=== PATIENT | female | born 1970 | race Caucasian/White ===

== ENCOUNTER 2016-12-25 08:21 | Emergency (ER) | payer SELFPAY ==
[2016-12-25] MEDS ORDERED: LORazepam 1 MG TABLET PO ONE (08:47)
[2016-12-25] MEDS ORDERED: LORazepam 1 MG TABLET ONE (08:49)
--- NOTE | 2016-12-25 08:53 | ERNOTE ---
Chest Pain/Cardiac HPI Date of Service: 12/25/16 Chief Complaint: Tachycardia Time Seen by Provider: 12/25/16 08:36 Source: patient, family Exam Limitations: no limitations Immunizations: IMMUNIZATION HX Immunizations Up to Date Yes History of Influenza Vaccine No Hx Pneumococcal Vaccination No Allergies/Adverse Reactions: Allergies Penicillins Allergy (Verified 10/16/13 16:38) Home Medications: HOME MEDICATIONS LORazepam [Ativan] 0.5 mg PO TID PRN #90 tab 12/25/16 [Last Taken Unknown] Nitrofurantoin Macrocrystal [Macrodantin] 50 mg PO QID #28 cap 12/25/16 [Last Taken Unknown] Sertraline HCl [Zoloft] 25 mg PO DAILY #30 tablet 12/25/16 [Last Taken Unknown] Narrative: Panic attacks with palpitations and tachycardia started about a year after her older sister 6 years ago. She improved on zoloft and as needed ativan. 2 years ago, she weaned herself off these meds, because she doesn't like taking medication. A year ago, the panic attacks resumed, and have worsened. She resisted restarting medication, because she doesn't like taking medication. Symptoms are now distressing enough, she is willing to resume medication. Since these episodes first began, she has also had fitful sleep and nightmares perhaps twice weekly, but no flashbacks. She wonders if low potassium might be causing the problem. Timing: getting worse Severity/Quality: moderate Location: other - no pain Chest Pain Radiation: no radiation - no pain Activities at Onset: none Modifying Factors - Improves: Present: other - meds in past Modifying Factors - Worsens: Present: other - nothing Nitro Today/Relief: no nitro taken today Aspirin Treatment Today: no aspirin today Associated Symptoms: Present: dizziness, palpitations, other - anxiety Prior Chest Pain/Cardiac Workup: Reports: other Prior Treatment: Denies: recently seen Review of Systems - Review of Systems Constitutional: Present: malaise EYE: Present: no symptoms reported ENT: Present: no symptoms reported Respiratory: Present: shortness of breath Cardiology: Present: See HPI Gastrointestinal/Abdominal: Present: no symptoms reported Genitourinary: Present: no symptoms reported Musculoskeletal: Present: no symptoms reported Skin: Present: no symptoms reported Neurological: Present: dizziness/light-headedness Endocrine: Present: no symptoms reported Hematologic/Lymphatic: Present: no symptoms reported Psych: Present: See HPI All Other Systems: All systems neg except as marked - Patient's Past Medical History Patient History - Medical: Anxiety Patient History - Cardiac/Respiratory: No pertinent hx Patient History - Cancer: No Hx of Cancer Patient History - Surgical Procedures: Tubal Ligation, Other Additional Info: Father and child with panic attacks, doing well on zoloft and ativan. Patient History - Other: None LMP (females 10-50): 3 months - Social History Living Situations: significant other Abuse History: No History of abuse Psych History: Hx of Anxiety Smoking Status: Current every day smoker Alcohol Use: occasionally Drug Use: none - Immunizations Immunizations Up to Date: Yes Hx Pneumococcal Vaccination: No History of Influenza Vaccine: No Physical Exam - Physical Exam General Appearance: Present: wd/wn, alert, no apparent distress, anxious Eye Exam: Normal inspection: bilateral, PERRL: bilateral, EOMI: bilateral Ears, Nose, Throat: Present: normal ENT inspection Neck: Present: normal inspection Respiratory: Present: no respiratory distress, lungs clear Cardiovascular/Chest: Present: regular rate, rhythm, no murmur Gastrointestinal/Abdominal: Present: normal bowel sounds, nontender, nondistended, soft, no organomegaly Back Exam: Present: normal inspection Extremity Exam: Present: normal inspection, no edema Neurological Exam: Present: alert, oriented, no motor/sensory deficits Skin Exam: Present: normal color, warm/dry ED Progress - Results and Orders Patient's Lab Results:: I have reviewed the patient's lab results. - Vital Signs Patient's Vital Signs:: I have reviewed the patient's vital signs. Vital Signs: Vital Signs 12/25/16 08:28 Temperature 37.2 C Pulse Rate 123 H Respiratory 19 Rate Blood Pressure 144/75 O2 Sat by Pulse 100 Oximetry - EKG EKG: NSR, nonspecific ST T wave changes EKG read: Interp. by me - Progress/Reassessment Chief Complaint: Tachycardia Departure - Departure Clinical Impression: Panic anxiety syndrome, Unresolved grief UTI (urinary tract infection) Qualifiers: Urinary tract infection type: acute cystitis Hematuria presence: without hematuria Qualified Code(s): N30.00 - Acute cystitis without hematuria Disposition: Home self-care Condition: Good Instructions: Panic Attacks, [id number], Complicated Grieving, Urinary Tract Infection, Adult, [id number] Additional Instructions: Followup with your doctor in 1-2 weeks. Referrals: Destinee Zamudio CNP [Primary Care Provider] - Prescriptions: LORazepam [Ativan] 0.5 mg PO TID PRN #90 tab PRN Reason: Anxiety Nitrofurantoin Macrocrystal [Macrodantin] 50 mg PO QID #28 cap Sertraline HCl [Zoloft] 25 mg PO DAILY #30 tablet
[2016-12-25 09:02] LABS: Hematocrit 40.7 % (37.0-47.0); Hemoglobin 13.8 gm/dL (12.5-16.0); Mean Cell Volume 92.1 fl (78-100); Mean Corpuscular Hemoglobin 31.2 pg (27-31); Mean Corpuscular Hgb Conc 33.9 g/dl (32-36); Neutrophil # 6.1 K/mm3 (1.3-6.0); Neutrophil % 76.1 % (42-75.0); Platelet Count 301 K/mm3 (150-450); Red Blood Count 4.42 M/mm3 (4.2-5.4); Red Cell Distribution Width 12.7 % (11.5-14.0); White Blood Count 8.1 K/mm3 (4.0-10.5)
--- OUTSIDE RECORDS SUMMARY | 2016-12-25 09:02 | XMS REPORT | Continuity of Care Document ---
:1970 Author Organization [facility] ([facility]) Address [address] [place] [address] Phone [phone] Care Team Providers Name Role Phone Destinee Zamudio Primary Care Provider [phone] Source Comments This disclosure is being made pursuant to the Care Everywhere program, applicable federal and state laws, and may not contain all informaitonavailable regarding this patient.[facility] ([facility]) Active Allergies and Adverse Reactions Allergen Noted Date Severity Reactions Comments Penicillins 01/01/2013 Unknown Current Medications Prescription Sig. Disp. Refills Start Date End Date Status SERTraline 50 mg tablet Take 50 mg by mouth Active daily. ibuprofen 200 mg capsule Take 400 mg by Active mouth as needed. Active Problems Problem Noted Date Pain in joint, ankle and foot 02/12/2014 Anxiety 01/02/2013 Closed left pilon fracture 01/02/2013 Ankle fracture 01/01/2013 Tobacco dependence Social History Tobacco Use Types Packs/Day Years Used Date Current Every Day Smoker Cigarettes 1 Smokeless Tobacco: Never Used Tobacco Cessation:Ready to Quit: No; Counseling Given: Yes Comments: Alcohol Use Drinks/Week oz/Week Comments No Last Filed Vital Signs Vital Sign Reading Time Taken Blood Pressure 116/68 01/19/2013 8:00 AM CDT Pulse 84 01/19/2013 8:00 AM CDT Temperature 36 C (96.8 F) 01/19/2013 8:00 AM CDT Respiratory Rate 16 01/19/2013 12:55 PM CDT Height 1.524 m (5') 01/18/2013 11:45 AM CDT Weight 52.164 kg (115 lb) 01/18/2013 11:45 AM CDT Body Mass Index 22.46 01/18/2013 11:45 AM CDT Oxygen Saturation 99% 01/19/2013 8:00 AM CDT Plan of Care Health Maintenance Due Date Last Done Comments Hepatitis B Vaccine (1 of 3 - Primary Series) 1970 Tdap Vaccine 1982 Lipid Disorder Screening 1989 MMR Vaccine 1989 Td Vaccine 1989 Pneumococcal Vaccine (1 of 1 - PPSV23) 1990 Cervical Cancer Screening 2001 Mammogram 2011 Influenza Vaccine: Seasonal (#1) 05/17/2016 Results from Last 3 Months Not on file
[2016-12-25 09:09] LABS: Urine Bilirubin Negative (NEGATIVE); Urine Ketone Negative (NEGATIVE); Urine Nitrite Negative (NEGATIVE); Urine Protein Negative (NEGATIVE); Urine Specific Gravity <=1.005 SP.GR. (1.005-1.010); Urine Urobilinogen Normal (NORMAL); Urine pH 6.5 pH (5.0-7.0)
[2016-12-25] MEDS ORDERED: SERTRALINE HCL 50 MG TABLET PO ONE (09:15)
[2016-12-25 09:16] LABS: Urine Appearance Cloudy; Urine Bacteria 3+; Urine Blood 10 /ul (NEGATIVE); Urine Color Pale Yellow; Urine RBC 0-5 /hpf (0-5)
[2016-12-25 09:23] LABS: Albumin * 4.2 gm/dl (3.4-5.0); BUN/Creatinine Ratio 7.4 (9.0-21.6); Bilirubin, Total 0.3 mg/dL (0.0-1.1); Ca. Corrected For Albumin 8.8 mg/dL (8.4-10.2); Calcium * 9.3 mg/dL (7.9-10.9); Carbon Dioxide 27.8 mmol/L (24-32.6); Potassium 3.8 mmol/L (3.4-4.6); T4 Free * 0.73 ng/dL (0.76-1.46); TSH * 3.26 uIU/mL (0.358-3.74); Total Protein 8.2 gm/dL (6.2-8.2)
[2016-12-25 09:28] LABS: Cocaine Ur Negative (NEGATIVE); Urine Barbiturate Negative (NEGATIVE); Urine Benzodiazepines Negative (NEGATIVE); Urine Opiates Negative (NEGATIVE); Urine PCP Negative (NEGATIVE); Urine THC Negative (NEGATIVE)
[2016-12-25 09:49] VITALS: BP 115/73
== END 2016-12-25 09:48 | disposition home or self-care (01) ==
LOC: ER 08:21
DX: F41.0 Panic disorder [episodic paroxysmal anxiety] (principal); F43.29 Adjustment disorder with other symptoms; N30.00 Acute cystitis without hematuria; Z72.0 Tobacco use